=== PATIENT | female | born 1965 | race Caucasian/White ===

== ENCOUNTER 2017-04-04 06:22 | Inpatient (IN) | payer OTHER ==
[2017-03-31 15:09] VITALS: BMI 27.8
[2017-04-04] MEDS ORDERED: ceFAZolin SODIUM 1 GM VIAL ONE (07:16)
[2017-04-04] MEDS ORDERED: fentaNYL CITRATE 250 MCG/5 ML VIAL ONE (07:52)
[2017-04-04] MEDS ORDERED: PROPOFOL 20 ML ONE (07:52)
[2017-04-04] MEDS ORDERED: SUCCINYLCHOLINE CHLORIDE 200 MG/10 ML VIAL ONE (07:52)
[2017-04-04] MEDS ORDERED: ROCURONIUM BROMIDE 50 MG/5 ML VIAL ONE (07:52)
[2017-04-04] MEDS ORDERED: MIDAZOLAM HCL 2 MG/2 ML SINGLE DOSE VIAL ONE (07:52)
[2017-04-04] MEDS ORDERED: LIDOCAINE 1%/EPI 1:100000 (20 ML MULTI DOSE VIAL) ONE ×2 (07:54→09:14)
[2017-04-04] MEDS ORDERED: INDOCYANINE GREEN 25 MG/10 ML VIAL IVPUSH ONE (07:54)
[2017-04-04] MEDS ORDERED: LIDOCAINE HCL/PF 2% SDV 5ML VIAL ONE ×2 (07:55→12:14)
[2017-04-04] MEDS ORDERED: DEXAMETHASONE SOD PHOSPHATE 4 MG/1 ML VIAL ONE (07:55)
[2017-04-04] MEDS ORDERED: SCOPOLAMINE HYDROBROMIDE 1 PATCH PATCH.TD72 ONE (08:20)
--- NOTE | 2017-04-04 08:21 | HP ---
History & Physical Update - History History: No Change - Physical Physical: No Change - Assessment Assessment: No Change - Plan Plan: No Change
[2017-04-04] MEDS ORDERED: METHYLENE BLUE 1% 10 MG/1 ML VIAL IVPUSH ONE (08:30)
[2017-04-04] MEDS ORDERED: ceFAZolin SODIUM 1 GM VIAL IVPB ONE (08:40)
[2017-04-04] MEDS ORDERED: KETOROLAC TROMETHAMINE 30 MG/1 ML VIAL ONE (10:13)
[2017-04-04] MEDS ORDERED: LIDOCAINE 1%/EPI 1:100000 (20 ML MULTI DOSE VIAL) IJ ONE ×2 (11:44)
[2017-04-04] MEDS ORDERED: PROMETHAZINE HCL 25 MG/1 ML VIAL IVPUSH PRN (12:07)
[2017-04-04] MEDS ORDERED: LACTATED RINGERS SOLUTION 1,000 ML IV SCH (12:15)
[2017-04-04] MEDS ORDERED: SODIUM CHLORIDE 1,000 ML IV ONE (14:15)
--- NOTE | 2017-04-04 15:22 | OP ---
DATE OF OPERATION: 04/04/2017 PREOPERATIVE DIAGNOSIS: Right adnexal mass. POSTOPERATIVE DIAGNOSIS: Right ovarian cancer. PROCEDURE: Robotic-assisted total hysterectomy, bilateral salpingo-oophorectomy, right ureterolysis, bilateral pelvic and periaortic lymph node dissection, and distal omentectomy. Also, radical excision of right pelvic mass. SURGEON: Hina Goodwin MD FUEL SYSTEM MAINTENANCE SUPERVISOR: Tanvir Henry MD ANESTHESIA: General endotracheal and local. ESTIMATED BLOOD LOSS: 100 mL COMPLICATIONS: None. FINDINGS: Cervix: No lesions. Vagina: No lesions. Intraabdominal findings: Normal liver edge; normal upper abdominal exam; diaphragm appeared normal; omentum appeared normal; appendix appeared normal. The uterus was 6 weeks' size, and the right ovary contained a solid mass. It was approximately 4 cm. It was adherent to the right pelvic sidewall and appeared to be invading the right pelvic peritoneum, very close to the ureter. The left ovary and tube appeared normal. There was no ascites or any other disease in the abdomen or pelvis. There was no lymphadenopathy. INDICATION: This is a 52-year-old who had history of postmenopausal vaginal bleeding. It was just spotting. She had a pelvic ultrasound which showed a right adnexal mass. She had no history of hormone replacement therapy. The ultrasound on March 03, 2017, showed the uterus 5.1 x 3.4 x 4.1 cm, the endometrial stripe 2.28 mm, right ovary with a solid 3.7-cm lesion, left ovary normal. The MRI on March 14, 2017, showed the uterus 7 x 4 x 5 cm; the right ovary lobulated with a 4.1-cm solid mass, no fatty or cystic component; left ovary normal; no pelvic lymphadenopathy. CA-125 was 143 on March 03, 2017. Patient had a negative colonoscopy in 2012 and negative Pap smear in November 2016. Patient was counseled regarding surgical management. Risks, benefits, indications, and alternatives were discussed with the patient. All questions were answered. Informed consent was signed. DESCRIPTION OF PROCEDURE: The patient was taken to the operating room, placed in dorsal supine position. General endotracheal anesthesia was obtained without difficulty. She was then placed in the dorsal lithotomy position in Omar stirrups and prepped and draped in the normal sterile fashion. Hull catheter was placed in the bladder. Speculum was placed in the vagina. The cervix was grasped with a single-tooth tenaculum, and a figure-of-8 stitch of 0 Vicryl was placed in the cervix. The cervix was gently dilated, and the [employer] uterine manipulator was then placed. Tenaculum and speculum were then removed. Attention was turned to the patient's abdomen; 5 mL of 1% lidocaine with epinephrine were injected into the umbilicus, and an 8-mm incision was made with a scalpel. Once entering the anterior abdominal wall, the Veress needle was inserted intraabdominally. The abdomen was insufflated with CO2 gas. An 8-mm trocar was then placed. Intraabdominal placement was confirmed by direct visualization with the laparoscope. Additional 8-mm trocars were placed in the left mid-quadrant and right mid-quadrant, and a 5-mm AirSeal port was placed in the left lower quadrant. All trocars were placed under direct visualization after injecting 1% lidocaine with epinephrine. A thorough survey of the abdomen and pelvis revealed the above-noted findings. Peritoneal washings were taken using normal saline. The da Lucy robot was then docked without difficulty. The right retroperitoneum was opened. The right ureter was noted to be well away from the field of dissection. The infundibulopelvic ligament was clamped, cauterized, and transected. The right adnexa were elevated, and the peritoneum was divided. At this point, it was noted more distally that the ovary was very adherent to the pelvic sidewall and to the ureter. The ureter was carefully dissected away from the mass, and the peritoneum was excised. The peritoneum was kept intact with the pelvic mass as well as the fatty tissue underlying the peritoneum which appeared to be also invading. The bladder flap was created anteriorly. The left adnexa were elevated. The left ureter was noted to be well away from the field of dissection. The left infundibulopelvic ligament was clamped, cauterized, and transected. This was carried through the broad ligament and the round ligament and the vesicouterine peritoneum anteriorly. The bladder was dissected off the anterior cervix and upper vagina. The uterine artery on the left was skeletonized. It was clamped, cauterized, and transected. This was carried along through the cardinal ligaments and uterosacral ligament on the left. On the right, very careful dissection was performed to free the mass from the pelvic sidewall and away from the iliac vessels. The right uterine artery was able to be skeletonized. It was clamped, cauterized, and transected. The cardinal ligaments were serially clamped, cauterized, and transected. The uterosacral ligament was clamped, cauterized, and transected. A vaginotomy incision was made circumferentially on the cervix, and the uterus, cervix, and left tube and ovary were passed through the vagina. The right tube and ovary were handed off the field in an Endo Catch bag. The right tube and ovary were sent for frozen section and returned high-grade serous carcinoma. At this point, we proceeded with staging. The right retroperitoneum was opened. The right external iliac artery and vein were identified. The genitofemoral nerve was identified and avoided, and the ureter on the right was identified and also retracted medially. The lymph nodes from the distal half of the common iliac to the deep circumflex were removed from the medial and lateral surface of the external iliac vessels. Excellent hemostasis was seen. The obturator space was opened. The obturator nerve was identified, and lymph nodes anterior to this were removed and handed off the field in an Endo Catch bag. The left retroperitoneum was opened. The lymph nodes were identified, and the adventitial tissue overlying the external iliac artery was opened. The lymph nodes from the distal half of the common iliac to the deep circumflex and lateral and medial surfaces of the external iliac artery and vein were removed. The left obturator nerve was identified. Lymph nodes anterior to this were removed. They were handed off the in an Endo Catch bag, and excellent hemostasis was seen. The right retroperitoneum was extended cephalad, and the lymph nodes overlying the IVC were removed. Excellent hemostasis was seen. These were also handed off the field. The left retroperitoneum incision was extended cephalad as well, and the lymph nodes overlying the left para-aortic area were removed. These were handed off the field as well. Excellent hemostasis was seen. An omentectomy was performed of the distal omentum, grasping the omentum and bringing it into the pelvis. Using electrocautery, the omentum inferior to the transverse colon was clamped, cauterized, and transected. This was carried, and a large portion of the distal omentum was removed. We were well away from the bowel. Excellent hemostasis was seen. At this point, the vaginal cuff was closed in a running continuous fashion using 2-0 V-Loc suture. Pelvis was thoroughly irrigated. All instruments were removed from the patient's abdomen. Sponge, needle, and instrument counts were correct x2. The da Lucy robot was then undocked. Trocars were removed. Skin was closed with 4-0 Monocryl, and Dermabond was applied. The vagina was irrigated with sterile water. The patient was extubated and transferred in stable condition to the PACU. Hina Goodwin M.D. [id number]
[2017-04-04] MEDS ORDERED: PROMETHAZINE HCL 25 MG/1 ML VIAL ONE (15:36)
[2017-04-04 16:09] LABS: MCH 30.2 pg (25.7-33.7); MCHC 34.7 g/dl (32.0-36.0); MEAN CELL VOLUME 86.8 fl (80-96); MEAN PLT VOLUME 9.1 fl (7.5-11.1); PLATELET COUNT 210 K/MM3 (134-434); RDW 12.4 % (11.6-15.6)
[2017-04-04] MEDS: ELECTROLYTE-148 SOLN 1,000 ML IV SCH ×2 (17:00→18:09)
[2017-04-04] MEDS ORDERED: HYDROmorphone HCL CARPU-JECT 2 MG/1 ML DISP.SYRIN ONE (17:28)
[2017-04-04] MEDS ORDERED: ACETAMINOPHEN INJECTION 100 ML IVPB ONE (17:28)
[2017-04-04] MEDS ORDERED: METOCLOPRAMIDE HCL INJECTION 10 MG/2 ML VIAL ONE (17:28)
[2017-04-04] MEDS: KETOROLAC TROMETHAMINE 30 MG/1 ML VIAL IVPUSH SCH (18:17)
[2017-04-04] MEDS ORDERED: ONDANSETRON 4 MG/2 ML VIAL IVPUSH PRN (18:29)
[2017-04-04] MEDS ORDERED: HYDROmorphone HCL CARPU-JECT 2 MG/1 ML DISP.SYRIN IVPB PRN (18:31)
[2017-04-05] MEDS: ELECTROLYTE-148 SOLN 1,000 ML IV SCH (01:08)
[2017-04-05] MEDS: KETOROLAC TROMETHAMINE 30 MG/1 ML VIAL IVPUSH SCH ×2 (02:06→11:09)
[2017-04-05 08:02] LABS: MCH 29.8 pg (25.7-33.7); MCHC 34.3 g/dl (32.0-36.0); MEAN CELL VOLUME 86.9 fl (80-96); MEAN PLT VOLUME 8.8 fl (7.5-11.1); PLATELET COUNT 245 K/MM3 (134-434); RDW 13.2 % (11.6-15.6); WHITE BLOOD COUNT 10.4 K/mm3 (4.0-10.0)
--- NOTE | 2017-04-05 08:10 | DS ---
"Physical Exam: SUBJECTIVE: POD #1. Resting comfortably. C/o of mild incisional tenderness. Adequate pain control via PRN meds. States she's been oob and ambulated a little. Allred cath removed at 7AM. Tolerating clear liquids. Denies n/v/f/c, CP or SOB, weak or dizzy. OBJECTIVE: Last Vital Signs Temp Pulse Resp BP Pulse Ox 98.7 F 96 H 20 108/64 100 04/05/17 07:34 04/05/17 07:34 04/05/17 07:34 04/05/17 07:34 04/04/17 21:00 PE GENERAL: awake, alert, and fully oriented, in no acute distress. HEAD: NC. AT. EYES: PERRL, extraocular movements intact, sclera anicteric, conjunctiva clear. NECK: Trachea midline, full ROM LUNGS: CTA bilat antriorly HEART: RRR ABD: All surgical ports c/d/i. No hematoma LE: 2+ pulses, warm, well-perfused, no edema. PSYCH: Normal mood, normal affect. LABS H/H TREND 11/17 11 14:50 06:50 Hgb 11.5 D 8.4 L D Hct 33.0 D 24.6 L D HOSPITAL COURSE: Date of Admission:04/04/17 Date of Discharge: 04/05/17 The patient was admitted to the Med-Surg Unit for post-operative management s/p robotic hysterectomy w/ bso & staging. The day of surgery, the patient ambulated the hallways with assistance. Narcotic and non-narcotic pain management control was achieved with an oral and IV approach. POD #1, the allred cath was removed and patient voided spontaneously. Her H/H did show a decrease (only 100mL blood loss during surgery ). A repeat CBC remains stable. Patient is asymptomatic so need for PRBC. Samantha-operative IV ABX were administered. DVT prophylaxis was achieved with SCDs and early ambulation. Prior to prescribing narcotic scripts, the [facility] PROFESSOR OF ART HISTORY was checked. This report was requested by: Brandyn Andino | Reference #: [id number]. The discharge instructions and an oral pain management plan were reviewed with the patient. All questions answered. Above plan discussed with Dr. Goodwin and agrees."
[2017-04-05 08:40] LABS: ANION GAP 6 (8-16); CALCIUM 8.2 mg/dL (8.5-10.1); CO2 30 mmol/L (21-32); CREATININE 0.7 mg/dL (0.55-1.02); GLUCOSE,RANDOM 108 mg/dL (74-106)
--- NOTE | 2017-04-05 09:40 | PN ---
Progress Note (short form) - Note Progress Note: Anesthesia POD#1 S/P Robotic Laproscopic hysterectomy and BSO under GA VSS,no N/V,food is advanced,pain is under control. Natasha Sher MD.
[2017-04-05 13:20] LABS: MCH 29.5 pg (25.7-33.7); MCHC 33.5 g/dl (32.0-36.0); MEAN CELL VOLUME 87.9 fl (80-96); MEAN PLT VOLUME 8.7 fl (7.5-11.1); PLATELET COUNT 217 K/MM3 (134-434); WHITE BLOOD COUNT 9.6 K/mm3 (4.0-10.0)
--- NOTE | 2017-04-05 14:38 | PN ---
Progress Note (short form) - Note Progress Note: POD #1. Resting comfortably. C/o of mild incisional tenderness. Adequate pain control via PRN meds. States she's been oob and ambulating without assistance. Hull cath removed at 7AM and she has since voided. She is tolerating regular diet. This mornings h/h drifted slightly compared to pre-op. A repeat h/h completed and continues to drift down but patient now c/o slight dizzy, weak and tired. Afebrile. HR & BP TREND 04/05/17 04/05/17 04/05/17 04/05/17 02:32 07:34 10:07 14:23 Pulse Rate 93 H 96 H 101 H 109 Blood Pressure 102/62 108/64 100/62 H/H TREND 04/04/17 04/05/17 04/05/17 14:50 06:50 12:20 Hgb 11.5 D 8.4 L D 7.8 L Hct 33.0 D 24.6 L D 23.2 L PE GENERAL: awake, alert, and fully oriented, in no acute distress. LUNGS: CTA bilat antriorly HEART: Slightly tachy but regular ABD: All surgical ports c/d/i. No hematoma LE: 2+ pulses, warm, well-perfused, no edema. Problem List - Problems (1) S/P FREDDY-BSO (total abdominal hysterectomy and bilateral salpingo- oophorectomy) Assessment/Plan: Vonofer 200mg IVPB ordered f/u repeat CBC at 6pm --> if Hgb < 7, notify either Drs. Goodwin or Shantal and transfuse 2 PRBC CBC in AM ordered FeSO4 325mg PO BID to start in AM Cont oob and ambulate Tordol dc'd Code(s): Z90.710 - ACQUIRED ABSENCE OF BOTH CERVIX AND UTERUS; Z90.722 - ACQUIRED ABSENCE OF OVARIES, BILATERAL; Z90.79 - ACQUIRED ABSENCE OF OTHER GENITAL ORGAN(S)
[2017-04-05] MEDS ORDERED: IRON SUCROSE INJECTION 200 MG in SODIUM CHLORIDE 100 ML IVPB ONE ×2 (15:30→16:00)
[2017-04-05] MEDS ORDERED: SODIUM CHLORIDE IVPB ONE (15:30)
[2017-04-05] MEDS ORDERED: IRON SUCROSE IVPB ONE (15:30)
[2017-04-05 19:28] LABS: BASOPHIL 0.2 % (0-2.0); EOSINOPHIL 0.2 % (0-4.5); MCH 29.5 pg (25.7-33.7); MCHC 33.7 g/dl (32.0-36.0); MEAN CELL VOLUME 87.7 fl (80-96); MEAN PLT VOLUME 9.3 fl (7.5-11.1); NEUTROPHILS 65.9 % (42.8-82.8); PLATELET COUNT 209 K/MM3 (134-434); WHITE BLOOD COUNT 8.6 K/mm3 (4.0-10.0)
[2017-04-05] MEDS: ACETAMINOPHEN 500 MG TABLET (FP) PO PRN (22:33)
[2017-04-06] MEDS: ACETAMINOPHEN 500 MG TABLET (FP) PO PRN (08:23)
--- NOTE | 2017-04-06 08:55 | PN ---
Progress Note (short form) - Note Progress Note: POD#2 Pt feeling better this am. Not dizzy, no CP or SOB. She had a bowel movement and is tolerating a diet. Vital Signs Period Temp Pulse Resp BP Sys/Morales Pulse Ox Last 24 Hr 98.3 F-98.8 F 97-118 18-18 100-118/62-69 93-98 GEN: appears comfortable ABD: soft, non-distended, inc tenderness. Inc c/d/i with dermabond LE: no calf tenderness or swelling noted b/l CBC, BMP 11//17 18:00 11/29/17 06:50 A/P: 52 yo female POD#2 s/p robotic assisted hysterectomy wit b/l salpingo- oopherectomy, pelivc mass dissection and lymph node dissection doing well surgically s/p 2 units PRBC's, f/u H&H this am plan for discharge to home if H&H stable
[2017-04-06 09:10] LABS: BASOPHIL 0.3 % (0-2.0); EOSINOPHIL 0.1 % (0-4.5); MCH 30.2 pg (25.7-33.7); MCHC 34.9 g/dl (32.0-36.0); MEAN CELL VOLUME 86.5 fl (80-96); MEAN PLT VOLUME 8.7 fl (7.5-11.1); NEUTROPHILS 67.3 % (42.8-82.8); PLATELET COUNT 183 K/MM3 (134-434); RDW 13.1 % (11.6-15.6); WHITE BLOOD COUNT 8.9 K/mm3 (4.0-10.0)
[2017-04-06] MEDS ORDERED: FERROUS SO4 325 MG TABLET (FP) PO SCH (10:00)
[2017-04-06 12:30] LABS: MCH 29.6 pg (25.7-33.7); MCHC 33.9 g/dl (32.0-36.0); MEAN CELL VOLUME 87.5 fl (80-96); MEAN PLT VOLUME 8.5 fl (7.5-11.1); PLATELET COUNT 195 K/MM3 (134-434); RDW 13.5 % (11.6-15.6); WHITE BLOOD COUNT 8.9 K/mm3 (4.0-10.0)
[2017-04-06 13:14] VITALS: BP 124/72; PULSE 96; TEMP 98.3
--- NOTE | 2017-04-06 16:15 | PATH ---
Cytology Non-Gynecological Report Patient Name: ALEXIS DEVI [facility]. Rec. #: [id number] /Age/Gender: 1965 (Age: 52) / F Account: [id number] [facility] Taken: 04/04/2017 Received: 04/04/2017 Reported: 04/06/2017 Physicians: Hina Goodwin MD Specimen(s) Received PELVIC WASHINGS Clinical History Left ovarian mass Final Diagnosis PELVIC WASHING FOR CYTOLOGY: SATISFACTORY FOR EVALUATION. POSITIVE FOR MALIGNANT CELLS. CARCINOMA. SEE COMMENT. Comment: Immunohistochemical stains performed and interpreted at [facility] show the carcinoma is positive for ER and CK7 (patchy). The carcinoma is morphologically similar to concurrent ovarian tumor ([id number]). Findings discussed with Dr. Goodwin. Electronically Signed Luh Winters M.D. Gross Description Approximately 50 cc of orange fluid received fresh in a sterile cup . Two cytofunnels and one cellblock prepared.
--- NOTE | 2017-04-07 16:14 | PATH ---
Surgical Pathology Report Patient Name: ALEXIS DEVI [facility]. Rec. #: [id number] /Age/Gender: 1965 (Age: 52) / F Account: [id number] Location: [facility] MED[facility]URG Taken: 04/04/2017 Received: 04/04/2017 Reported: 04/07/2017 Physicians: Hina Goodwin MD Specimen(s) Received A: RIGHT FALLOPIAN TUBE AND OVARY B: UTERUS CERVIX LEFT FALLOPIAN TUBE AND OVARY C: RIGHT PELVIC LYMPH NODES D: CECAL ADHESIONS E: LEFT PELVIC LYMPH NODES F: RIGHT PARA-AORTIC LYMPH NODES G: LEFT PARA-AORTIC LYMPH NODES H: OMENTUM RESECTION Clinical History Ovarian mass Intraoperative Consult Diagnosis Right fallopian tube and ovary: Positive for carcinoma; favor high grade serous carcinoma. Tristian Bai M.D., 04/04/17 Final Diagnosis A. OVARY AND FALLOPIAN TUBE, RIGHT, SALPINGO-OOPHORECTOMY (FS): RIGHT OVARY WITH HIGH GRADE SEROUS CARCINOMA. TUMOR MEASURES 4.8 X 4.2 CM (GROSS MEASUREMENT). TUMOR FOCALLY INVOLVES OVARIAN SURFACE AND RIGHT FALLOPIAN TUBE. LYMPHOVASCULAR INVASION IS IDENTIFIED. PATHOLOGIC STAGING, SEE COMMENT. SEE INVASIVE CARCINOMA SUMMARY BELOW. B. UTERUS, CERVIX, LEFT FALLOPIAN TUBE AND OVARY, ROBOTIC TOTAL HYSTERECTOMY WITH SALPINGO-OOPHORECTOMY: UTERUS WITH INACTIVE ENDOMETRIUM. MYOMETRIUM WITH INTRAMURAL LEIOMYOMATA. UNREMARKABLE UTERINE AND CERVICAL SEROSA. CERVIX WITH MILD CHRONIC INFLAMMATION. LEFT OVARY WITH FOLLICULAR CYSTS. LEFT FALLOPIAN TUBE WITH PARATUBAL CYSTS. NO DYSPLASIA OR CARCINOMA IDENTIFIED. C. PELVIC LYMPH NODE, RIGHT, EXCISION: TWO BENIGN LYMPH NODES (0/2). D. CECAL ADHESIONS, EXCISION: BENIGN ADIPOSE AND DENSE FIBROUS TISSUE WITH MESOTHELIAL PROLIFERATION AND RARE FRAGMENTS OF SQUAMOUS EPITHELIUM. E. PELVIC LYMPH NODES, LEFT, EXCISION: THREE BENIGN LYMPH NODES (0/3). F. PARA-AORTIC LYMPH NODES, RIGHT, EXCISION: FOUR BENIGN LYMPH NODES (0/4). G. PARA-AORTIC LYMPH NODES, LEFT, EXCISION: BENIGN FIBROADIPOSE AND NERVE TISSUE. NO LYMPHOID TISSUE IDENTIFIED. H. OMENTUM, RESECTION: METASTATIC CARCINOMA. TUMOR DEPOSIT MEASURES 4MM IN GREATEST MICROSCOPIC DIMENSION. COMMENT: PATHOLOGIC STAGING: pT3a pN0 Note: Concurrent pelvic washing is positive for carcinoma ([id number]). Immunohistochemical stains performed at [place], [place] ([id number]) and interpreted at [facility] show the tumor is positive for WT-1 and Gates-8. P16 and P53 are likewise overexpressed. Histomorphology and immunophenotype supports the above diagnosis. Comments Ovarian Carcinoma: Surgical Pathology Cancer Case Summary (Checklist) Based on AJCC/UICC TNM, 7th edition Lymph Node Sampling _X_ Performed Specimen Integrity Right Ovary _X_ Capsule ruptured Left Ovary _X_ Capsule intact Primary Tumor Site _X_ Right ovary Ovarian Surface Involvement _X_Present Tumor Size Right Ovary Greatest dimension: 4.8 cm (gross measurement) Histologic Type: Histologic Grade World Health Organization (WHO) Grading System _X__ G3: Poorly differentiated Two-Tier Grading System _X_ High grade Invasive Implant(s) _X_ Present (specify sites): Omentum Extent of Involvement of Other Tissues/Organs _X__ Involved Right fallopian tube _X__ Involved Omentum _X__ Not involved Left ovary _X__ Not involved Left fallopian tube _X__ Not Involved Uterus _X__ Not assessed -Peritoneum Lymph-Vascular Invasion _X_ Present Pathologic Staging (pTNM FIGO) Primary Tumor :pT3a Regional Lymph Nodes: pN0 Distant Metastasis: pMx Additional Pathologic Findings _X__ None identified Electronically Signed Luh Winters M.D. Gross Description A. Received fresh labeled "right fallopian tube and ovary," is a 2 cm in length fimbriated fallopian tube with an attached 4.8 x 4.2 x 4.0 cm ovary. The outer surface of the fallopian tube is pink-meier with focal tubal ovarian adhesions. Sectioning reveals an unremarkable lumen. The attached ovary is pink-meier with a focal defect and focal adhesions. No excrescences are identified. Sectioning reveals meier, nodular, solid parenchyma with focal fibrous septae. No normal ovarian parenchyma is identified. A cordage sales representative section of the ovary is submitted for frozen section. Teacher Lip Reading sections are submitted in 10 cassettes as follows: 1-frozen section residue; 2-fallopian tube fimbria; 8-6-xkhol-sections of fallopian tube; 6-5-texjqiit from defect; 7-68-qixysfandg cordage sales representative ovary. B. Received in formalin labeled "uterus, cervix, left fallopian tube and ovary," is an 85 g hysterectomy specimen including a uterus, attached cervix and an attached left fallopian tube and left ovary. The specimen measures 7.5 cm from superior to inferior, 6 cm from left to right and 3.5 cm from anterior to posterior. The cervix measures 2.1 cm in length and averages 2.4 cm in diameter. The ectocervix is meier-pink, smooth and glistening. The endocervix is unremarkable. The endometrial cavity measures 3.3 cm in length and 1.8 cm from cornu to cornu. The endometrium is meier-pink and averages 0.1 cm in thickness. The myometrium displays multiple small intramural nodules measuring up to 0.7 cm in greatest dimension. The cut surface of the nodules displays meier, firm to rubbery parenchyma with whorled architecture. No areas of hemorrhage or necrosis are identified. The remaining myometrium is meier-pink with a focus of hemorrhage and averages 1.7 cm in thickness. The left fimbriated fallopian tube appears previously ligated and measures 1.8 cm in length. The outer surface is clinton purple and smooth. Sectioning reveals a focally dilated, cystic appearing lumen. The attached left ovary measures 2.5 x 1.9 x 1.1 cm. The outer surface is meier-yellow and smooth. Sectioning reveals a 0.6 cm in greatest dimension cystic lesion. The remaining ovarian parenchyma is meier and smooth. Teacher Lip Reading sections are submitted in 22 cassettes as follows: 1-1:00 cervix; 2-2:00 cervix; 3-3:00 cervix; 4-4:00 cervix; 5-5:00 cervix; 6-6:00 cervix; 7-7:00 cervix; 8-8:00 cervix; 9-9:00 cervix; 10-10:00 cervix; 11-11:00 cervix; 12-12:00 cervix; 84-37-wjjfgxpf endomyometrium; 47-53-qlmaxkjxd endomyometrium; 17-intramural nodules; 18-left fallopian tube fimbria; 10-hnvwg-qzibbxco of entirely submitted left fallopian tube; 21-45-ukcqppnc submitted left ovary. C. Received in formalin labeled "right pelvic lymph nodes," is a 3.5 x 3.0 x 0.4 cm aggregate of yellow, lobulated adipose tissue. Sectioning reveals 2 meier, irregular lymph nodes measuring 0.6 and 1.5 cm in greatest dimension. The lymph nodes are submitted in toto in one cassette. D. Received in formalin labeled "cecal adhesion," is a 2.4 x 1.1 x 0.3 cm portion of yellow, lobulated adipose tissue with attached fibrous tissue. The specimen is submitted in toto in one cassette. E. Received in formalin labeled "left pelvic lymph node," is a 5.5 x 4.7 x 0.9 cm aggregate of yellow, lobulated adipose tissue. Sectioning reveals 3 meier, irregular lymph nodes ranging from 0.9-2.0 cm in greatest dimension. The lymph nodes are bisected and entirely submitted in 3 cassettes as follows: 1-3-one whole bisected lymph node each. F. Received in formalin labeled "right para-aortic lymph node," is a 3.0 x 2.2 x 0.6 cm aggregate of yellow, lobulated adipose tissue. Sectioning reveals multiple meier, irregular lymph nodes ranging in size from 0.5 and 1.2 cm in greatest dimension. The specimens are submitted in toto in one cassette. G. Received in formalin labeled "left para-aortic lymph node," is a 2.2 x 1.8 x 0.3 cm aggregate of yellow, lobulated adipose tissue. No definite lymph nodes are identified grossly. The specimen is entirely submitted in one cassette. H. Received in formalin labeled "omental resection," is a 12.0 x 7.8 x 2.5 cm aggregate of yellow, lobulated adipose tissue, consistent with omentum. Sectioning reveals a 0.4 x 0.3 x 0.2 cm white nodule. The remaining omentum is unremarkable. Teacher Lip Reading sections are submitted in 5 cassettes as follows: 1-bisected nodule; 7-8-evzheuajtegnhr omentum. 04/04/[address] [facility]04/04/2017
== END 2017-04-06 13:19 | disposition home or self-care (01) | DRG 735 ==
LOC: JASU-SURG 06:22 → JSAMEDAYSX 12:59 → J8W 17:59
PROVIDERS: ADMIT Obstetrics & Gynecology Gynecologic Oncology; ATTEND Obstetrics & Gynecology Gynecologic Oncology
PROC: 0UT74ZZ Resection of Bilateral Fallopian Tubes, Percutaneous Endoscopic Approach (ICD-10-PCS; 2017-04-04)
PROC: 0UT24ZZ Resection of Bilateral Ovaries, Percutaneous Endoscopic Approach (ICD-10-PCS; 2017-04-04)
PROC: 0DTU4ZZ Resection of Omentum, Percutaneous Endoscopic Approach (ICD-10-PCS; 2017-04-04)
PROC: 0DBW3ZZ Excision of Peritoneum, Percutaneous Approach (ICD-10-PCS; 2017-04-04)
PROC: 0TN Urinary System, Release (ICD-10-PCS; 2017-04-04)
PROC: 8E0W4CZ Robotic Assisted Procedure of Trunk Region, Percutaneous Endoscopic Approach (ICD-10-PCS; 2017-04-04)
PROC: 0UT94ZZ Resection of Uterus, Percutaneous Endoscopic Approach (ICD-10-PCS; principal; 2017-04-04 08:00)
PROC: 07TC4ZZ Resection of Pelvis Lymphatic, Percutaneous Endoscopic Approach (ICD-10-PCS; 2017-04-04 08:00)
PROC: 30233N1 Transfusion of Nonautologous Red Blood Cells into Peripheral Vein, Percutaneous Approach (ICD-10-PCS; 2017-04-06)
DX: C56.1 Malignant neoplasm of right ovary (principal); R19.09 Other intra-abdominal and pelvic swelling, mass and lump
CPT/HCPCS: 36415; 36430; 80048; 84702; 85025; 85027; 86850; 86900; 86901; 86922; 88108; 88305-TC; 88307-TC; 88331-TC; 88341-TC; 88342-TC; 94010; 94760; J1756; P9038; P9058